=== PATIENT | female | born 1980 | race Caucasian/White ===

== ENCOUNTER 2023-04-21 19:23 | Emergency (ER) | payer MEDICAID ==
--- NOTE | 2023-04-21 19:50 | NUR ---
PT CALLED TO BE TRIAGE NO ANSWER. CALLED IN WAITING ROOM AND OUTSIDE ER NO ANSWER.
--- NOTE | 2023-04-21 20:00 | NUR ---
CALLED FOR BED PLACE NO ANSWER
--- NOTE | 2023-04-21 20:10 | NUR ---
CALLED FOR BED PLACEMENT NO ANSWER
== END 2023-04-21 20:10 | disposition left against medical advice (07) ==
LOC: SED 19:23
DX: M79.604 Pain in right leg (principal); Z53.21 Procedure and treatment not carried out due to patient leaving prior to being seen by health care provider